=== PATIENT | male | born 1960 | race Caucasian/White ===

== ENCOUNTER → 2017-01-09 | Outpatient (CLI) | payer OTHER ==
[~2017-01-09] MED LIST: GLUCOPHAGE500 MG PO; GLUCOSAMINE-CH1 EA15 PO; HYDROCHLOROTHIA25 MG PO; IRON325 M1 PO; LO-DOSE ASPIRIN81 M2 PO; LOPRESSOR50 MG PO; NAPROSYN500 MG PO; NORVASC10 MG PO; ZESTRIL40 MG PO
== END | disposition home or self-care (01) ==
DX: M16.11 Unilateral primary osteoarthritis, right hip (principal); M25.551 Pain in right hip; Z74.1 Need for assistance with personal care
CPT/HCPCS: 97110 GP; 97150 GO; 97161 GP; 97165 GO

== ENCOUNTER 2017-02-05 05:23 | Inpatient (IN) | payer OTHER ==
[~2017-02-05] VITALS: Ht 182.9 cm; Wt 131.0 kg
[2017-02-05 06:12] VITALS: BP 145/97
[2017-02-05 07:13] LABS: POINT-OF-CARE METER ID UU14174212; POINT-OF-CARE USER ID AHSRSCSLC11
[2017-02-05 09:49] LABS: POINT-OF-CARE METER ID UU13113675; POINT-OF-CARE USER ID ADMKMM76
[2017-02-05 10:39] LABS: HEMATOCRIT 35.7 % (38.0-50.0); MCH 28.5 PG (29.0-34.0); MCHC 33.3 G/DL (30.0-36.0); MCV 85.4 FL (86-99); PLATELET COUNT 228 K/uL (156-360); RBC DIS.WIDTH-CV 12.8 % (11.8-14.6); RBC DIS.WIDTH-SD 39.8 % (39-53); RED BLOOD COUNT 4.18 M/uL (4.00-5.50); WHITE BLOOD COUNT 14.3 K/uL (4.1-10.2)
[2017-02-05 10:59] VITALS: BP 136/85
[2017-02-05 12:40] LABS: POINT-OF-CARE METER ID UU13113712
[2017-02-05 15:37] VITALS: BP 114/86
[2017-02-05 16:36] LABS: POINT-OF-CARE METER ID UU13113712
[2017-02-05 19:54] VITALS: BP 136/83
[2017-02-05 21:52] LABS: POINT-OF-CARE METER ID UU13113712
[2017-02-06 00:30] VITALS: BP 135/75
[2017-02-06 04:27] VITALS: BP 134/76
[2017-02-06 05:58] LABS: HEMATOCRIT 32.9 % (38.0-50.0); MCV 84.6 FL (86-99)
[2017-02-06 06:23] LABS: ANION GAP 10 MEQ/L (2-14); CHLORIDE 100 MEQ/L (99-109); GFR ESTIMATE (CALCULATED) > 59 mL/min/; GLUCOSE 165 mg/dL (70-99); POTASSIUM 3.4 MEQ/L (3.7-5.4); SAMPLE HEMOLYSIS CHECK 0; SAMPLE ICTERIC CHECK 0; SAMPLE LIPEMIA CHECK 0; SODIUM 136 MEQ/L (136-147); UREA NITROGEN (BUN) 16 mg/dL (9-23)
[2017-02-06 08:20] VITALS: BP 132/71
[2017-02-06 11:20] LABS: POINT-OF-CARE METER ID UU13113712
[2017-02-06 12:07] VITALS: BP 136/70
[2017-02-06 15:39] VITALS: BP 114/73
[2017-02-06 16:19] LABS: POINT-OF-CARE METER ID UU13113712
[2017-02-06 19:53] VITALS: BP 132/85
[2017-02-06 22:15] LABS: POINT-OF-CARE METER ID UU13113712
[2017-02-07 00:30] VITALS: BP 133/59
[2017-02-07 04:11] VITALS: BP 127/64
[2017-02-07 07:14] LABS: POINT-OF-CARE METER ID UU13113712
[2017-02-07 08:08] VITALS: BP 166/83
[2017-02-07] MEDS ORDERED: ENDOCET 5-3251 EACH PO (08:45)
[2017-02-07] MEDS ORDERED: LOVENOX40 MG/0.4 SC (08:45)
[2017-02-07 11:29] LABS: POINT-OF-CARE METER ID UU13113712
[2017-02-07 11:50] VITALS: BP 135/73
== END 2017-02-07 14:25 | disposition home health service (06) | DRG 470 ==
LOC: 2SOUTH 05:23 → 3WEST 10:41 → 2SOUTH 13:09 → 3WEST 02-07 14:25
PROVIDERS: Orthopaedic Surgery
PROC: 0SR902A Replacement of Right Hip Joint with Metal on Polyethylene Synthetic Substitute, Uncemented, Open Approach (ICD-10-PCS; principal; 2017-02-05)
DX: M16.11 Unilateral primary osteoarthritis, right hip (principal); I10 Essential (primary) hypertension; E11.9 Type 2 diabetes mellitus without complications; N40.0 Benign prostatic hyperplasia without lower urinary tract symptoms; Z79.82 Long term (current) use of aspirin
CPT/HCPCS: 73501; 73522; 80048; 82948; 85014; 85018; 85027; J0690; J1170; J1650; J1815; J2250; J3010; J7050